=== PATIENT | male | born 1950 | race Caucasian/White ===

== ENCOUNTER 2017-05-25 06:38 | Emergency (ER) | payer MEDICARE, OTHER ==
[2017-05-25 06:45] VITALS: RESP 16; O2SAT 97
--- NOTE | 2017-05-25 07:37 | C.PDOC ---
History Of Present Illness 66-year-old male, presents to the emergency department with complaints of itchy rash to bilateral lower arms for the past few days, after he was doing yard work. Denies any fevers, nausea/vomiting. Time Seen by Provider: 05/25/17 07:20 Chief Complaint (Nursing): Abnormal Skin Integrity History Per: Patient History/Exam Limitations: no limitations Onset/Duration Of Symptoms: Days Current Symptoms Are (Timing): Still Present Severity: Mild Recent travel outside of the [place]: No Past Medical History Reviewed: Historical Data, Nursing Documentation, Vital Signs Vital Signs: Last Vital Signs Temp 98 F 05/25/17 07:44 Pulse 62 05/25/17 07:44 Resp 16 05/25/17 07:44 BP 142/82 05/25/17 07:44 Pulse Ox 97 05/25/17 07:48 - Medical History PMH: No Chronic Diseases Surgical History: No Surg Hx Family History: States: No Known Family Hx - Social History Hx Tobacco Use: No Hx Alcohol Use: Yes Hx Substance Use: No - Immunization History Hx Tetanus Toxoid Vaccination: No Hx Influenza Vaccination: Yes Hx Pneumococcal Vaccination: No Review Of Systems Except As Marked, All Systems Reviewed And Found Negative. Constitutional: Negative for: Fever Gastrointestinal: Negative for: Nausea, Vomiting Skin: Positive for: Rash Physical Exam - Physical Exam Appears: Non-toxic, No Acute Distress Skin: Warm, Dry, Other ( erythema and vesicles to B/L arms) Head: Atraumatic, Normacephalic Eye(s): bilateral: Normal Inspection, PERRL, EOMI Nose: Normal Oral Mucosa: Moist Lips: Normal Appearing Neck: Normal ROM Cardiovascular: Rhythm Regular, No Murmur Respiratory: Normal Breath Sounds, No Accessory Muscle Use Extremity: Normal ROM Neurological/Psych: Oriented x3, Normal Speech Gait: Steady ED Course And Treatment O2 Sat by Pulse Oximetry: 97 Pulse Ox Interpretation: Normal Progress Note: Pt will be given Benadryl and Prednisone, and discharged home for f/u outpatient. Reassessment Condition: Unchanged Disposition Counseled Patient/Family Regarding: Diagnosis, Need For Followup, Rx Given - Disposition Referrals: [facility] [Outside] [facility] [Outside] Disposition: HOME/ ROUTINE Disposition Time: 07:45 Condition: GOOD Additional Instructions: Follow up with clinic for further evaluation Prescriptions: predniSONE [Prednisone] 60 mg PO DAILY #12 tab Instructions: Contact Dermatitis (ED), Poison Susie (ED) Print Language: THAI - POA Present On Arrival: None - Clinical Impression Clinical Impression: Contact dermatitis - Scribe Statement The provider has reviewed the documentation as recorded by the Scribe (Vibha Hunter) All medical record entries made by the Scribe were at my direction and personally dictated by me. I have reviewed the chart and agree that the record accurately reflects my personal performance of the history, physical exam, medical decision making, and the department course for this patient. I have also personally directed, reviewed, and agree with the discharge instructions and disposition.
[2017-05-25 07:44] VITALS: BP 142/82; PULSE 62; TEMP 98
== END 2017-05-25 07:57 | disposition home or self-care (01) ==
LOC: C.ER 06:38
DX: L25.9 Unspecified contact dermatitis, unspecified cause (principal)